=== PATIENT | male | born 1980 | race Two or more races ===

== ENCOUNTER → 2024-06-17 | Outpatient (CLI) | payer MEDICAID, SELFPAY ==
--- NOTE | 2024-06-17 13:39 | XR_ITS ---
Examination: Ultrasound soft tissue extremity left groin TECHNIQUE: By resolution grayscale sonographic images left lower abdomen left groin Exam date and time: June 17, 2024 1351 hours INDICATIONS: Left lower abdomen groin palpable lump one year getting worse FINDINGS: Sonographic findings consistent with hernia in the left lower abdomen 3.9 x 1.2 x 3.3 cm, no definite bowel present in this hernia defect IMPRESSION: Positive for probable hernia defect in the left lower abdomen, consider CT scan abdomen pelvis without intravenous contrast follow-up
== END | disposition home or self-care (01) ==
PROVIDERS: PCP Nurse Practitioner Family; Referring Provider Nurse Practitioner Family; Visit Provider Nurse Practitioner Family
DX: K40.90 Unilateral inguinal hernia, without obstruction or gangrene, not specified as recurrent (principal)
CPT/HCPCS: 76882

== ENCOUNTER 2025-01-13 07:00 | Day surgery (SDC) | payer MEDICAID, SELFPAY ==
[2025-01-10 11:53] VITALS: BMI 29.9
[2025-01-10 13:34] LABS: Basophils # (Auto) 0.0 Thou/mm3 (0.0-0.2); Basophils % (Auto) 1 % (0-2.5); Eosinophils # (Auto) 0.3 Thou/mm3 (0.0-0.5); Eosinophils % (Auto) 4 % (0-10); Hematocrit 43.0 % (41.0-53.0); Hemoglobin 14.7 g/dL (13.5-16.0); Immature Granulocytes Auto 0.02 Thou/mm3 (0.00-0.00); Lymphocytes # (Auto) 2.8 Thou/mm3 (1.0-4.8); Lymphocytes % (Auto) 32 % (10-50); Mean Corpuscular HGB Conc 34.2 g/dl (31.0-37.0); Mean Corpuscular Hemoglobin 32.2 pg (25.0-35.0); Mean Corpuscular Volume 94 fL (80-100); Monocytes # (Auto) 0.7 Thou/mm3 (0.0-0.8); Monocytes % (Auto) 8 % (0-12); Neutrophils # (Auto) 4.9 Thou/mm3 (1.8-7.7); Neutrophils % (Auto) 57 % (37-80); Nucleated Red Blood Cell # 0.00 Thou/mm3 (0.00-0.00); Nucleated Red Blood Cell % 0 /100 WBC (0); Platelet Count 287 Thou/mm3 (140-440); RDW Standard Deviation 44.2 fL (35.1-43.9); Red Blood Count 4.57 Miln/mm3 (4.50-5.90); White Blood Count 8.7 Thou/mm3 (3.8-10.6)
[2025-01-10 13:46] LABS: Anion Gap 7 (7-16); BUN/Creatinine Ratio 13 Ratio (12-20); Blood Urea Nitrogen 13 mg/dL (9-23); Calcium 8.7 mg/dL (8.3-10.6); Carbon Dioxide 27.6 mMol/L (20.0-31.0); Chloride 105 mMol/L (98-107); Creatinine (Component) 1.0 mg/dL (0.6-1.3); Estimated Creatinine Clearance 104.6 mL/min (>60); Glucose 90 mg/dL (74-106); Osmolality,Calculated 279 (275-295); Potassium 3.8 mMol/L (3.4-5.1); Sodium 140 mMol/L (136-145); eGFR > 60 See Note
--- NOTE | 2025-01-12 14:54 | SUR.PREOP ---
Called pt, brother and pt's assigned ride home, no answer, voice message left in pts voicemail to come in tomorrow at 0700 for surgery.
[2025-01-13] VITALS (11 sets, daily range): BP systolic 121–147; BP diastolic 82–104; PULSE 59–86; RESP 11–20; TEMP 36.2–36.8; O2SAT 96–100; BMI 28.6
[2025-01-13] MEDS: RINGERS LACTATED 1000 ML 1,000 ML 20 ML IV (07:43)
--- NOTE | 2025-01-13 10:31 | ESOP_ITS ---
Date of Procedure 01/13/25 Pre Op Diagnosis Incarcerated left inguinal hernia Post Op Diagnosis Incarcerated indirect left inguinal hernia Procedure Repair of incarcerated left inguinal hernia with mesh Findings Indirect left inguinal hernia with incarcerated sigmoid colon Procedure Description Patient brought into the operating room in supine position. After administration of general endotracheal anesthesia, patient's left groin was shaved, prepped and draped in standard surgical manner. The left inguinal crease was anesthetized with half percent Marcaine. An approximately 6 cm incision was made and dissection was carried to subcutaneous tissue. The Sheree's fascia was divided and the external oblique aponeurosis was opened tow ards the external ring. The hernia sac and the spermatic cord structures were from the posterior aspect of the external oblique aponeurosis at the level of pubic tubercle. The hernia sac was then meticulously dissected off the spermatic cord structures at the level of internal ring. The hernia sac was opened and the contents that were incarcerated sigmoid colon, reduced. The hernia sac was then ligated at the level of internal ring. The floor of inguinal canal was then reconstructed with ultra Pro proceed mesh. The mesh was secured with running 2-0 Prolene suture. The mesh secured medially to the pubic tubercle, superiorly into the conjoin tendon, inferiorly and to the shelving edge of inguinal ligament, the mesh was placed around the cord structures and tacked under the external oblique aponeurosis laterally. The area was copiously and thoroughly washed and irrigated, all the fluids were suctioned and the suction fluid returned clear. Hemostasis was adequate and satisfactory. External oblique aponeurosis was closed with running 2-0 Vicryl suture, and Sheree's fascia was closed with interrupted suture using 3-0 Vicryl. The incision was closed with 4-0 Monocryl in subcutaneous fashion. Instruments, needles and sponge counts were reported to be correct ?2. Patient tolerated the procedure well. He was extubated, breathing spontaneously and without difficul ty and was transferred to postanesthesia care in stable condition. Anesthesia GETA and local Pathology / specimen Other (Hernia sac) Estimated Blood Loss 10 Condition Stable Disposition PACU Surgeon Thierry Pressley MD Surgical Staff Operation Date: 01/13/25 09:15 Case Staff Anesthesiologist: Pepe Rodriguez RN First Assistant: Barbara Noble
--- NOTE | 2025-01-13 10:53 | SUR.PHASEI ---
1027: Pt received in [facility] via gurney. Report from Chloe ROA and Dr. Rodriguez. Pt obtunded. Oral airway in place. Resp even, unlabored. BP elevated but is within pre-procedure baseline. No new orders at this time. Other VS stable. Dressing to left groin dry, clean, intact. 1041: Oral airway dc'd. Resp even, unlabored. 1055: Pt resting with no complaints voiced. Resp even, unlabored. VS stable. Dressing remains dry, clean, intact.
[2025-01-13] MEDS: fentaNYL CIT INJ 50 mCg/ML AMP 2ML 25 MCG IVP (11:19)
--- NOTE | 2025-01-13 11:22 | SUR.PHASEII ---
1119: Pt awake with c/o pain to left groin. Rates pain level 3/10. Resp even, unlabored. VS stable. Pain medication given per order.
--- NOTE | 2025-01-13 14:43 | SUR.PHASEII ---
1140: Pt states pain level down and he is more comfortable. Resp even, unlabored. VS stable. Dressing remains ddr
--- NOTE | 2025-01-13 14:45 | SUR.PHASEII ---
1140: Cont: dry, clean, intact. 1200: Pt fully awake, oriented x3. VS stable. Rates pain level 2/10. Pt dressed. Assisted to transport chair. Ambulation steady. Friend with pt. 1210: Pt and friend stated understanding of discharge instructions. Pt also instructed to steel pickler his medication at [facility]. Pt discharged from [facility] in stable condition.
== END 2025-01-13 12:10 | disposition home or self-care (01) ==
PROVIDERS: PCP Nurse Practitioner Family; Referring Provider Surgery; Visit Provider Surgery
PROC: (CPT 49507; principal; 2025-01-13 09:00)
DX: K40.30 Unilateral inguinal hernia, with obstruction, without gangrene, not specified as recurrent (principal)
CPT/HCPCS: 49507; 36415; 80048; 85025; A4217; A4649; C1781; J0131; J0690; J1100; J1885; J2250; J2371; J2405; J2704; J3010; J3490; J7120